=== PATIENT | male | born 1960 | race Hispanic/Latino ===

== ENCOUNTER 2018-03-06 11:38 | Outpatient (CLI) | payer BC ==
[2018-03-06 12:44] LABS: #Basophils 0.1 thou/uL (0.0-0.2); #Eosinphils 0.3 thou/uL (0.0-0.7); #Lymphocytes 2.7 thou/uL (1.20-3.40); #Monocytes 0.7 thou/uL (0.11-0.59); #Neutrophils 2.7 thou/uL (1.40-6.50); %Basophils 0.8 % (0.0-1.0); %Eosinophils 4.9 % (0.0-10.0); %Lymphocytes 42.2 % (21.0-51.0); %Monocytes 10.3 % (0.0-10.0); %Neutrophils 41.8 % (42.0-75.0); Hemoglobin 14.5 g/dL (14.0-18.0); Mean Corpuscular HGB CONC 32.5 g/dL (32.0-36.0); Mean Corpuscular Hemoglobin 31.3 pg (27.0-31.0); Mean Corpuscular Volume 96.3 fL (78.0-98.0); Mean Platelet Volume 7.7 fL (7.4-10.4); Platelet Count 252 thou/uL (130-400); Red Blood Cell (RBC) Count 4.62 mill/uL (4.70-6.10); White Blood Cell (WBC) Count 6.3 thou/uL (4.8-10.8)
[2018-03-06 12:56] LABS: Anion Gap 13 mmol/L (10-20); BUN (Urea Nitrogen) 11 mg/dL (8.4-25.7); Calc. Creatinine Clearance 0 mL/min (70-130); Calcium 9.2 mg/dL (7.8-10.44); Carbon Dioxide 25 mmol/L (22-29); Chloride 106 mmol/L (98-107); Estimated GFR-MDRD 79; Glucose 96 mg/dL (70-105); Potassium 4.6 mmol/L (3.5-5.1); Sodium 139 mmol/L (136-145)
== END 2018-03-06 11:39 | disposition home or self-care (01) ==
LOC: LABBT 11:38
PROVIDERS: ATTEND Specialist
DX: Z01.812 Encounter for preprocedural laboratory examination (principal); K60.2 Anal fissure, unspecified
CPT/HCPCS: 80048; 85025

== ENCOUNTER 2018-03-10 06:06 | Day surgery (SDC) | payer BC ==
--- NOTE | 2018-02-23 12:31 | HP ---
: 1960 HISTORY OF PRESENT ILLNESS: Estefanía Mendoza is a 57-year-old male patient who I saw on 11/01/2017 f or an anal fissure. He had a typical exam for anal fissure with posterior tenderness and pain with d efecation and had a small sentinel tag. The patient has been compliant on taking his nitro paste 2-3 times a day and MiraLax, but has continued to have problems with perianal pain, burning pain with de fecation. He desires more definitive therapy. Plan is for exam under anesthesia, right lateral inte rnal sphincterotomy and other procedures as indicated, possible hemorrhoidectomy. He understands the risks and benefits and consents. He had a normal colonoscopy with Dr. Tinajero 2-4 years ago. PAST MEDICAL HISTORY: Anal fissure. PAST SURGICAL HISTORY: Colonoscopy. TOBACCO: None. ALCOHOL: Rarely. MEDICATIONS: None routinely except as noted above. REVIEW OF SYSTEMS: Ten point noncontributory. PRIMARY CARE PHYSICIAN: Dr. Brown. PHYSICAL EXAMINATION: VITAL SIGNS: Weight 194 pounds, 70 inches tall, 124/74, 54, 98.4 degrees. HEENT: Unremarkable. LUNGS: Clear to auscultation. CARDIAC: Regular rate and rhythm without murmur or gallop. ABDOMEN: Soft, nontender, no masses. EXTREMITIES: Unremarkable. No ankle edema, palpable pedal pulses. NEUROLOGIC: Intact. No focal deficits. RECTAL: Examination of his anus reveals a sentinel tag posteriorly, exquisite tenderness posteriorly and a raw area that I can visualize in the posterior anal canal. Exam and findings consistent with anal fissure. ASSESSMENT AND PLAN: Persistent pain despite medical management. PLAN: Exam under anesthesia, most likely right lateral internal sphincterotomy and other indicated p rocedures. Risks and benefits discussed, he consents. Plan for him to be on liquids beginning at [facility], the day before, take magnesium citrate after getting off work and an enema that evening or the m orning of surgery. Risks and benefits explained and he consents. Questions answered.
[2018-03-06 12:00] VITALS: BMI 26.1
[2018-03-10] MEDS ORDERED: MEROPENEM 1 GM/50 ML 1 GM in Premix Bag 1 BAG IVPB SCH (07:00)
[2018-03-10] MEDS ORDERED: Fleet Enema 133 ML BOT FS ONE (07:00)
[2018-03-10] MEDS ORDERED: Ketorolac Tromethamine 30 MG/ML VIAL ONE ×2 (07:04→14:51)
[2018-03-10] MEDS ORDERED: CEFAZOLIN/Water 2 GM/20 ML SYRINGE ONE (07:04)
[2018-03-10] MEDS ORDERED: Bupivacaine HCl 0.5%/Epinephrine 1:200,000/PF 30 ml Vial ONE (07:05)
[2018-03-10] MEDS ORDERED: Lidocaine 2% PF Inj 2 ML VIAL ONE (07:05)
[2018-03-10] MEDS ORDERED: Lidocaine 2% Jelly 5 ML TUBE ONE (07:06)
[2018-03-10] MEDS ORDERED: Midazolam HCl 2 mg/2 ml Vial ONE (07:27)
[2018-03-10] MEDS ORDERED: Fentanyl 100 MCG/2 ML VIAL ONE (07:27)
--- NOTE | 2018-03-10 10:53 | OP ---
DATE OF PROCEDURE: 03/10/2018 PREOPERATIVE DIAGNOSIS: Posterior anal fissure refractory to medical management. POSTOPERATIVE DIAGNOSIS: Posterior anal fissure refractory to medical management. PROCEDURE: Right lateral internal sphincterotomy. SURGEON: Dr. Musa Roman ANESTHESIA: General. Local 0.5% Marcaine with epinephrine, 30 mL, mixed with 2% Xylocaine 10 mL, 10 mL mixture used. PROCEDURE IN DETAIL: The patient was taken to the operating room where under general anesthesia in t he dorsal lithotomy position, perianal area and buttocks prepared with Betadine, draped in routine fa shion. Heraclio Freeman retractor inserted and a posterior anal fissure appreciated. Right lateral int ernal sphincterotomy accomplished by making a small incision near the patient's right lateral periana l area midline and internal sphincter dissected free with a hemostat, divided with the cautery and sk in approximated with continuous locking suture of 3-0 chromic. The patient tolerated the procedure w ell and local anesthetic infiltrated into the skin and subcutaneous tissue for postoperative pain con trol.
[2018-03-10] MEDS ORDERED: Ondansetron PF 4 MG/2 ML Vial ONE (14:51)
[2018-03-10] MEDS ORDERED: Dexamethasone 20 MG/5 ML VIAL ONE (14:51)
[2018-03-10] MEDS ORDERED: PROPOFOL 200 MG/20 ML VIAL ONE (14:51)
[2018-03-10] MEDS ORDERED: Lidocaine 1% PF 5 ML VIAL ONE (14:51)
== END 2018-03-10 10:15 | disposition home or self-care (01) ==
LOC: SDC 06:06
PROVIDERS: ATTEND Specialist
PROC: 0D8R3ZZ Division of Anal Sphincter, Percutaneous Approach (ICD-10-PCS; principal; 2018-03-10)
DX: K60.2 Anal fissure, unspecified (principal)
CPT/HCPCS: J0131; J0670; J1100; J1885; J2001; J2185; J2250; J2405; J2704; J3010

== ENCOUNTER 2020-10-03 11:01 | Outpatient (CLI) | payer BC | END 2020-10-03 11:02 | disposition home or self-care (01) | LOC: BICRAD 11:01 | PROVIDERS: ATTEND Physician Assistant | DX: M25.561 Pain in right knee (principal); M17.11 Unilateral primary osteoarthritis, right knee ==

== ENCOUNTER 2020-10-28 11:34 | Outpatient (CLI) | payer BC | END 2020-10-28 11:35 | disposition home or self-care (01) | LOC: BICMRI 11:34 | PROVIDERS: ATTEND Internal Medicine Rheumatology | DX: M25.561 Pain in right knee (principal); S83.231A Complex tear of medial meniscus, current injury, right knee, initial encounter; R60.0 Localized edema; M17.11 Unilateral primary osteoarthritis, right knee; M71.21 Synovial cyst of popliteal space [Baker], right knee ==

== ENCOUNTER 2021-01-29 09:08 | Outpatient (CLI) | payer BC | END 2021-01-29 09:09 | disposition home or self-care (01) | LOC: MRI 09:08 | PROVIDERS: ATTEND Orthopaedic Surgery | DX: M75.42 Impingement syndrome of left shoulder (principal); M75.112 Incomplete rotator cuff tear or rupture of left shoulder, not specified as traumatic; S43.432A Superior glenoid labrum lesion of left shoulder, initial encounter ==